=== PATIENT | male | born 1990 | race Caucasian/White ===

== ENCOUNTER 2023-04-23 17:35 | Inpatient (IN) | payer OTHER ==
[~2023-04-23] VITALS: Ht 177.8 cm; Wt 68.0 kg
[2023-04-23] MEDS ORDERED: IV NORMAL SALINE 1000 ML BAG IV ONE (18:00)
[2023-04-23] MEDS ORDERED: ONDANSETRON 4 MG/2 ML VIAL IV ONE ×2 (18:00→21:00)
[2023-04-23] MEDS ORDERED: BUPRENORPHINE HCL 2 MG TAB.SUBL SL ONE (18:15)
[2023-04-23] MEDS ORDERED: LORAZEPAM 2 MG/1 ML VIAL IM ONE (18:15)
[2023-04-23] MEDS ORDERED: ONDANSETRON 4 MG/2 ML VIAL ONE ×2 (18:32→21:06)
[2023-04-23 18:46] LABS: HEMATOCRIT 43.6 % (36.7-47.1); MEAN CORPUSCULAR HEMOGLOBIN 27.2 uug (23.8-33.4); MEAN CORPUSCULAR VOLUME 82.1 fL (73.0-96.2); PLATELET COUNT (AUTO) 132 K/uL (152-348)
[2023-04-23 18:55] LABS: CREATININE 0.8 mg/dL (0.6-1.3)
[2023-04-23 19:03] LABS: BILIRUBIN,TOTAL 0.6 mg/dL (0.2-1.0); MAGNESIUM 1.8 mg/dL (1.8-2.4); PHOSPHOROUS 1.9 mg/dL (2.5-4.9); TOTAL PROTEIN, SERUM 7.1 g/dL (6.4-8.2)
--- NOTE | 2023-04-23 19:30 | NUR ---
REPORT RECIEVED FROM ELLE BREEN.
--- NOTE | 2023-04-23 20:40 | NUR ---
PT IS VOMITTING, MOD AMT YELLOW EMISIS. AWARE.
--- NOTE | 2023-04-23 21:00 | NUR ---
PT GIVE ZOFRAN 4 MG PER MD ORDER.
[2023-04-23] MEDS ORDERED: ONDANSETRON 4 MG/2 ML VIAL IV PRN (21:30)
[2023-04-23] MEDS ORDERED: ACETAMINOPHEN 325 MG TABLET PO PRN (21:30)
[2023-04-23] MEDS ORDERED: REMEDY ESSENTIAL ZINC PASTE 113 GM TP PRN (21:30)
[2023-04-23] MEDS ORDERED: BUPRENORPHINE HCL 2 MG TAB.SUBL SL PRN (21:30)
--- NOTE | 2023-04-23 21:30 | NUR ---
REPORT CALLED TO RAGINI BREEN.
--- NOTE | 2023-04-23 21:55 | NUR ---
received from ER via gurney .patient awake alert no respiratory distress noted breathing even and unlabored on room air denies pain .patient able to moved bilateral upper and lower extremities but weak. changed soiled linens and gown . urinal placed with in reach call light placed with reach advised to call for help and not to ge oob by self .
--- NOTE | 2023-04-23 22:05 | NUR ---
Pt. admitted to [facility] , under care of Dr. RODRIGUES Belongs List completed
[2023-04-23 22:26] LABS: LIPASE 378 U/L (73-393); MAGNESIUM 1.7 mg/dL (1.8-2.4); PHOSPHOROUS 2.3 mg/dL (2.5-4.9)
[2023-04-23 22:29] VITALS: BP 137/88; TEMP 98.7; O2SAT 92
[2023-04-23 22:31] LABS: THYROID STIMULATING HORMONE 0.485 mIU/mL (0.358-3.740)
[2023-04-23 22:43] LABS: CHOLESTEROL 59 mg/dL (<200); HDL CHOLESTEROL 105 mg/dL (40-60); TRIGLYCERIDES < 15 MG/DL (30-150)
[2023-04-23] MEDS: IV LACTATED RINGERS SOLUTION 1,000 ML IV PRN (22:58)
--- NOTE | 2023-04-23 22:59 | NUR ---
patient vomited moderate amount of greenish colored vomitus given emesis bag advised patient to use the emesis bag given Zofran prn .
[2023-04-23] MEDS ORDERED: NEUTRA PHOS PACKET PO ONE (23:15)
--- NOTE | 2023-04-24 | NUR ---
sleeping in bed no respiratory distress ,ivf infusing .
[2023-04-24] MEDS: MAGNESIUM SULFATE/D5W 100 ML IV SCH ×2 (01:27)
[2023-04-24 04:00] VITALS: BP 139/84; TEMP 98.5; O2SAT 94
--- NOTE | 2023-04-24 06:00 | NUR ---
patient incontinent of stool and urine had a large bm soft brownish in color changed soiled linens patient able to help in turning and repositioning .
[2023-04-24 09:33] LABS: HEMATOCRIT 41.6 % (36.7-47.1); MEAN CORPUSCULAR HEMOGLOBIN 27.3 uug (23.8-33.4); MEAN CORPUSCULAR VOLUME 80.9 fL (73.0-96.2); PLATELET COUNT (AUTO) 258 K/uL (152-348)
[2023-04-24 09:48] LABS: BILIRUBIN,TOTAL 0.6 mg/dL (0.2-1.0); MAGNESIUM 2.1 mg/dL (1.8-2.4); PHOSPHOROUS 3.2 mg/dL (2.5-4.9); POTASSIUM 3.3 mmol/L (3.5-5.1); TOTAL PROTEIN, SERUM 6.9 g/dL (6.4-8.2)
[2023-04-24] MEDS ORDERED: POTASSIUM CHLORIDE 20 MEQ TAB.PRT.SR PO ONE (11:00)
[2023-04-24 11:53] VITALS: BP 133/82; TEMP 99.2; O2SAT 94
[2023-04-24 15:40] VITALS: BP 130/75; TEMP 99.2; O2SAT 95
[2023-04-24] MEDS: IV LACTATED RINGERS SOLUTION 1,000 ML IV PRN (20:47)
--- NOTE | 2023-04-25 04:29 | NUR ---
AAOx4 Asleep upon initial rounds. Generalized weakness noted. No nausea/vomiting noted. Kept comfortable. Will monitor patient. No acute distress noted. VSS.
[2023-04-25 05:31] VITALS: BP 136/80; TEMP 98.8; O2SAT 96
[2023-04-25] MEDS: PANTOPRAZOLE SODIUM 40 MG TABLET.DR PO SCH ×2 (06:10→06:11)
--- NOTE | 2023-04-25 09:00 | NUR ---
Nursing- Patient;s father in to pick ip patient patient plan discharge today . Reciewed discharge instructions. patient not interactive. Patient was aware of his charge this am. Noted weak no appetite, still wants ti be discharge as requsted as planned . Flat guarded, interacts when engaged hesitant t to answers questions .Present IVF of Lactated Ringers infusing well right hand dc'd 2x2 dressing applied .
--- NOTE | 2023-04-25 09:31 | NUR ---
Nursing - Discharge to home via private car accompanied by his father, no sign of any resp. distress, denies pain , just feeling weak. All belonings and valuables returned back to patient. father singed papers for discharged instuctions, reviewed ,verbalized understanding
--- NOTE | 2023-04-25 13:33 | NUR ---
Nursing -Discharged to home via private car, no complaints
== END 2023-04-25 09:10 | disposition home or self-care (01) | DRG 897 ==
LOC: ER 17:35 → MEDSURG3 20:59
PROVIDERS: ADMIT Nurse Practitioner Acute Care; ATTEND Nurse Practitioner Acute Care
DX: F11.23 Opioid dependence with withdrawal (principal); D69.6 Thrombocytopenia, unspecified; Z00.6 Encounter for examination for normal comparison and control in clinical research program; E83.39 Other disorders of phosphorus metabolism; E83.42 Hypomagnesemia; E87.6 Hypokalemia; R11.2 Nausea with vomiting, unspecified; F43.9 Reaction to severe stress, unspecified; D72.829 Elevated white blood cell count, unspecified
CPT/HCPCS: 36415; 71045; 83690; 83735; 84100; 84443; 84484; 85025; 93005; A4663; G0378; J2405; J3475; J7040; J7120